=== PATIENT | male | born 1995 | race Caucasian/White ===

== ENCOUNTER 2017-12-15 02:24 | Emergency (ER) | payer SELFPAY ==
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
[2017-12-15] MEDS ORDERED: Ketorolac 60 MG/2 ML SDV IM ONE (02:58)
[2017-12-15] MEDS ORDERED: Ibuprofen 200 MG Tab PO ONE (04:03)
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
== END 2017-12-15 05:12 | disposition home or self-care (01) ==
LOC: MW.ED 02:24
DX: S06.0X0A Concussion without loss of consciousness, initial encounter (principal); S00.12XA Contusion of left eyelid and periocular area, initial encounter; I10 Essential (primary) hypertension; F17.210 Nicotine dependence, cigarettes, uncomplicated; Y04.2XXA Assault by strike against or bumped into by another person, initial encounter
CPT/HCPCS: 70450; 96372; 99284; A9270; J1885

== ENCOUNTER 2018-02-18 21:59 | Emergency (ER) | payer MEDICAID ==
[2018-02-18] MEDS ORDERED: Penicillin V Potassium Soln 250 MG/5 ML 100 ML Bottle PO ONE (22:20)
--- NOTE | 2018-02-18 22:23 | EDM.PDOC ---
ED HPI GENERAL MEDICAL PROBLEM - General Chief Complaint: ENT Problem Stated Complaint: PT HAS TOOTHACHE Time Seen by Provider: 02/18/18 22:17 - History of Present Illness INITIAL COMMENTS - FREE TEXT/NARRATIVE: HISTORY AND PHYSICAL: History of present illness: Patient is a 22-year-old white male presents with concern of dental abscess right lower molar patient had swelling and pain and is in the process of arranging for dental evaluation and definitive treatment. He denies fever chills nausea vomiting Review of systems: As per history of present illness and below otherwise all systems reviewed and negative. Past medical history: As per history of present illness and as reviewed below otherwise noncontributory. Surgical history: As per history of present illness and as reviewed below otherwise noncontributory. Social history: No reported history of drug or alcohol abuse. Family history: As per history of present illness and as reviewed below otherwise noncontributory. Physical exam: HEENT: Atraumatic, normocephalic, pupils reactive, negative for conjunctival pallor or scleral icterus, mucous membranes moist, throat clear, neck supple, nontender, trachea midline. Patient is generally poor dentition with multiple dental caries he is gingival swelling and edema in the region of his right lower molar. Lungs: Clear to auscultation, breath sounds equal bilaterally, chest nontender. Heart: S1S2, regular, negative for clicks, rubs, or JVD. Abdomen: Soft, nondistended, nontender. Negative for masses or hepatosplenomegaly. Negative for costovertebral tenderness. Pelvis: Stable nontender. Genitourinary: Deferred. Rectal: Deferred. Extremities: Atraumatic, negative for cords or calf pain. Neurovascular unremarkable. Neuro: Awake, alert, oriented. Cranial nerves II through XII unremarkable. Cerebellum unremarkable. Motor and sensory unremarkable throughout. Exam nonfocal. Diagnostics: None Therapeutics: Pen-Vee K 500 mg Impression: #1 dentalgia #2 dental abscess #3 dental caries Definitive disposition and diagnosis as appropriate pending reevaluation and review of above. tooth/mouth Pain Score (Numeric/FACES): 10 - Related Data Allergies Allergy/AdvReac Type Severity Reaction Status Date / Time No Known Allergies Allergy Verified 02/18/18 22:15 Home Meds: Home Meds . [No Known Home Meds] 12/15/17 [History] Past Medical History Cardiovascular History: Reports: Hypertension Other Cardiovascular History: pt states "I have a 20% heart function" Neurological History: Reports: Seizure, Other (See Below) Other Neuro History: Pt reports "I had a stroke in December last year" - Past Surgical History HEENT Surgical History: Reports: Other (See Below) Other HEENT Surgeries/Procedures: abscess removed from ears Cardiovascular Surgical History: Reports: None Neurological Surgical History: Reports: None Social & Family History - Family History Family Medical History: Noncontributory - Tobacco Use Smoking Status *Q: Current Every Day Smoker Years of Tobacco use: 7 Packs/Tins Daily: 0.5 - Caffeine Use Caffeine Use: Reports: Soda - Alcohol Use Days Per Week of Alcohol Use: 7 Number of Drinks Per Day: 1 Total Drinks Per Week: 7 - Recreational Drug Use Recreational Drug Use: No ED ROS GENERAL - Review of Systems Review Of Systems: ROS reveals no pertinent complaints other than HPI. ED EXAM, GENERAL - Physical Exam Exam: See Below (See dictation) Course - Vital Signs Last Recorded V/S: Last Vital Signs Temp 37.0 C 02/18/18 22:12 Pulse 81 02/18/18 22:12 Resp 14 02/18/18 22:12 BP 176/111 H 02/18/18 22:12 Pulse Ox 97 02/18/18 22:12 - Orders/Labs/Meds Orders: Active Orders 24 hr Category Date Time Status Penicillin V Potassium [Veetids 250 MG/5 ML Soln] Med 02/18/18 22:20 Once 500 mg PO ONETIME ONE Departure - Departure Time of Disposition: 22:22 Disposition: Home, Self-Care 01 Condition: Good Clinical Impression: Dental abscess, Dental caries - Discharge Information *PRESCRIPTION DRUG MONITORING PROGRAM REVIEWED*: Not Applicable *COPY OF PRESCRIPTION DRUG MONITORING REPORT IN PATIENT CATHERINE: Not Applicable Referrals: PCP,None [Primary Care Provider] - Additional Instructions: The following information is given to patients seen in the emergency department who are being discharged to home. This information is to outline your options for follow-up care. We provide all patients seen in our emergency department with a follow-up referral. The need for follow-up, as well as the timing and circumstances, are variable depending upon the specifics of your emergency department visit. If you don't have a primary care physician on staff, we will provide you with a referral. We always advise you to contact your personal physician following an emergency department visit to inform them of the circumstance of the visit and for follow-up with them and/or the need for any referrals to a consulting specialist. The emergency department will also refer you to a specialist when appropriate. This referral assures that you have the opportunity for followup care with a specialist. All of these measure are taken in an effort to provide you with optimal care, which includes your followup. Under all circumstances we always encourage you to contact your private physician who remains a resource for coordinating your care. When calling for followup care, please make the office aware that this follow-up is from your recent emergency room visit. If for any reason you are refused follow-up, please contact the [facility] emergency department at and asked to speak to the emergency department charge nurse. Pen-Vee K as prescribed dental balls as directed follow-up dentist as discussed and return as needed as discussed - My Orders Last 24 Hours: My Active Orders 02/18/18 22:20 Penicillin V Potassium [Veetids 250 MG/5 ML Soln] 500 mg PO ONETIME ONE - Assessment/Plan Last 24 Hours: My Active Orders 02/18/18 22:20 Penicillin V Potassium [Veetids 250 MG/5 ML Soln] 500 mg PO ONETIME ONE
[2018-02-18] MEDS ORDERED: Penicillin V Potassium 500 MG Tab ONE (22:31)
[2018-02-18] MEDS ORDERED: Benzocaine 20% Topical Spray UD MUCMEM ONE (22:33)
[2018-02-18] MEDS ORDERED: Lidocaine 2% Viscous Solution 15 ML Cup PO ONE (22:34)
== END 2018-02-18 22:48 | disposition home or self-care (01) ==
LOC: MW.ED 21:59
DX: K04.7 Periapical abscess without sinus (principal); K02.9 Dental caries, unspecified; F17.210 Nicotine dependence, cigarettes, uncomplicated
CPT/HCPCS: 99282; A9270